=== PATIENT | male | born 2000 | race Caucasian/White ===

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

== ENCOUNTER 2023-06-18 12:46 | Emergency (ER) | payer OTHER ==
[~2023-06-18] VITALS: Ht 185.4 cm; Wt 84.1 kg
[~2023-06-18 12:46] MED LIST: IBUP-1022 PO
[2023-06-18] MEDS ORDERED: CETI-24 (13:34)
[2023-06-18] MEDS ORDERED: PRED20TA PO (16:58)
[2023-06-18] MEDS ORDERED: TRIA1CR80 TOP (16:58)
[2023-06-18 17:03] VITALS: BP 134/84; TEMP 99.1; O2SAT 100
== END 2023-06-18 17:07 | disposition home or self-care (01) ==
LOC: M ED 12:46
DX: L23.7 Allergic contact dermatitis due to plants, except food (principal); Z79.52 Long term (current) use of systemic steroids; Z79.899 Other long term (current) drug therapy